=== PATIENT | male | born 1970 | race American Indian/Alaskan Native ===

== ENCOUNTER 2018-11-21 08:12 | Inpatient (IN) | payer OTHER ==
[2018-11-21] MEDS ORDERED: NORMODYNE IV ONE ×4 (09:20→12:56)
--- NOTE | 2018-11-21 09:27 | Emergency Department Report ---
ED General Adult HPI - General Chief complaint: Wound/Laceration Stated complaint: HBP/DIABETIC/LEG INJURY Time Seen by Provider: 11/21/18 09:11 Source: patient Mode of arrival: Ambulatory Limitations: No Limitations - History of Present Illness Initial comments: This is a 47-year-old man who is a very poor historian. He states that he injuried his leg about 3 days ago. He does admit that he has had increasing redness. He denies fever or chills. As far as any other symptoms he is not responding to the positive on review of systems at all. Apparently he's been out of his insulin/diabetes medicine as well as antihypertensive medicines since his he states dropped him from his insurance. He states that he has a divorce in progress. He is not expressing any depression or SI/HI. He is very vague as to the reason for his presentation today. I believe this to be likely the wound on his leg which has become more red. He was noted to be tachycardic and triage with uncontrolled hypertension. -: Gradual Location: left (pretibial area) Radiation: non-radiation Quality: aching Consistency: intermittent Improves with: none Worsens with: none Associated Symptoms: denies other symptoms Treatments Prior to Arrival: none - Related Data Allergies Allergy/AdvReac Type Severity Reaction Status Date / Time No Known Allergies Allergy Unverified 11/21/18 08:21 ED Review of Systems ROS: Stated complaint: HBP/DIABETIC/LEG INJURY Other details as noted in HPI Constitutional: denies: chills, fever Eyes: denies: eye pain, eye discharge, vision change ENT: denies: ear pain, throat pain Respiratory: denies: cough, shortness of breath, wheezing Cardiovascular: denies: chest pain, palpitations Endocrine: no symptoms reported Gastrointestinal: denies: abdominal pain, nausea, diarrhea Genitourinary: denies: urgency, dysuria Musculoskeletal: as per HPI. denies: back pain, joint swelling, arthralgia Skin: as per HPI. denies: rash, lesions Neurological: denies: headache, weakness, paresthesias Psychiatric: denies: anxiety, depression Hematological/Lymphatic: denies: easy bleeding, easy bruising ED Past Medical Hx - Past Medical History Hx Hypertension: Yes Hx CVA: Yes Hx Diabetes: Yes - Surgical History Past Surgical History?: No - Social History Smoking Status: Never Smoker Substance Use Type: None ED Physical Exam - General Limitations: No Limitations General appearance: alert, in no apparent distress - Head Head exam: Present: atraumatic, normocephalic - Eye Eye exam: Present: normal appearance. Absent: scleral icterus - ENT ENT exam: Present: mucous membranes moist - Neck Neck exam: Present: normal inspection. Absent: tenderness, meningismus - Respiratory Respiratory exam: Present: normal lung sounds bilaterally. Absent: respiratory distress - Cardiovascular Cardiovascular Exam: Present: regular rate, normal rhythm. Absent: systolic murmur, diastolic murmur, rubs, gallop - GI/Abdominal GI/Abdominal exam: Present: soft, normal bowel sounds. Absent: distended, tenderness, guarding, rebound, rigid - Rectal Rectal exam: Present: deferred - Extremities Exam Extremities exam: Present: normal capillary refill, other (there is a pretibial superficial wound/ulcer surrounded by erythema without signs of ascending lymp hangitis. There is no gross adenopathy. There is soft tissue swelling of the calf.). Absent: calf tenderness - Back Exam Back exam: Present: normal inspection - Neurological Exam Neurological exam: Present: alert, oriented X3, CN II-XII intact. Absent: motor sensory deficit - Psychiatric Psychiatric exam: Present: normal affect, normal mood - Skin Skin exam: Present: warm, dry, intact, normal color. Absent: rash ED Course Vital Signs 11/21/18 11/21/18 11/21/18 08:21 09:52 10:00 Temperature 98.4 F Pulse Rate 130 H 111 H Respiratory 18 19 26 H Rate Blood Pressure 206/118 177/104 O2 Sat by Pulse 97 96 Oximetry 11/21/18 11/21/18 10:59 11:00 Temperature Pulse Rate 113 H Respiratory 21 Rate Blood Pressure 185/112 185/112 O2 Sat by Pulse 94 93 Oximetry - Reevaluation(s) Reevaluation #1: Patient's blood pressure is improving. He will not be given bolus IV fluids because he apparently has a cardiomyopathy and substantial uncontrolled hypertension 11/21/18 11:35 ED Medical Decision Making - Lab Data Result diagrams: 11/21/18 09:16 11/21/18 09:16 Laboratory Results - last 24 hr 11/21/18 11/21/18 11/21/18 08:23 09:16 09:16 WBC 16.7 H RBC 4.33 Hgb 13.5 Hct 39.4 MCV 91 MCH 31 MCHC 34 RDW 12.7 L Plt Count 242 Lymph % (Auto) 7.1 L [place] % (Auto) 10.9 H Eos % (Auto) 0.0 Baso % (Auto) 0.5 Lymph # 1.2 [place] # 1.8 H Eos # 0.0 Baso # 0.1 Seg Neutrophils % 81.5 H Seg Neutrophils # 13.6 H PT INR APTT Sodium 135 L Potassium 3.2 L Chloride 94.0 L Carbon Dioxide 26 Anion Gap 18 BUN 8 L Creatinine 0.8 Estimated GFR > 60 BUN/Creatinine Ratio 10 Glucose 352 H POC Glucose 282 H Lactic Acid Calcium 8.8 Total Bilirubin 0.50 Direct Bilirubin < 0.2 AST 14 ALT 11 Alkaline Phosphatase 119 Total Creatine Kinase 214 H CK-MB (CK-2) 3.5 CK-MB (CK-2) Rel Index 1.6 Troponin T < 0.010 NT-Pro-B Natriuret Pep 891.2 H Total Protein 7.3 Albumin 3.3 L Albumin/Globulin Ratio 0.8 TSH Urine Color Urine Turbidity Urine pH Ur Specific [place] Urine Protein Urine Glucose (UA) Urine Ketones Urine Blood Urine Nitrite Urine Bilirubin Urine Urobilinogen Ur Leukocyte Esterase Urine WBC (Auto) Urine RBC (Auto) Urine Mucus Urine Opiates Screen Urine Methadone Screen Ur Barbiturates Screen Ur Phencyclidine Scrn Ur Amphetamines Screen U Benzodiazepines Scrn Urine Cocaine Screen 11/21/18 11/21/18 11/21/18 09:23 09:23 09:23 WBC RBC Hgb Hct MCV MCH MCHC RDW Plt Count Lymph % (Auto) [place] % (Auto) Eos % (Auto) Baso % (Auto) Lymph # [place] # Eos # Baso # Seg Neutrophils % Seg Neutrophils # PT 13.0 INR 0.94 APTT 25.8 Sodium Potassium Chloride Carbon Dioxide Anion Gap BUN Creatinine Estimated GFR BUN/Creatinine Ratio Glucose POC Glucose Lactic Acid 1.20 Calcium Total Bilirubin Direct Bilirubin AST ALT Alkaline Phosphatase Total Creatine Kinase CK-MB (CK-2) CK-MB (CK-2) Rel Index Troponin T NT-Pro-B Natriuret Pep Total Protein Albumin Albumin/Globulin Ratio TSH 0.799 Urine Color Urine Turbidity Urine pH Ur Specific [place] Urine Protein Urine Glucose (UA) Urine Ketones Urine Blood Urine Nitrite Urine Bilirubin Urine Urobilinogen Ur Leukocyte Esterase Urine WBC (Auto) Urine RBC (Auto) Urine Mucus Urine Opiates Screen Urine Methadone Screen Ur Barbiturates Screen Ur Phencyclidine Scrn Ur Amphetamines Screen U Benzodiazepines Scrn Urine Cocaine Screen 11/21/18 11/21/18 11:07 11:07 WBC RBC Hgb Hct MCV MCH MCHC RDW Plt Count Lymph % (Auto) [place] % (Auto) Eos % (Auto) Baso % (Auto) Lymph # [place] # Eos # Baso # Seg Neutrophils % Seg Neutrophils # PT INR APTT Sodium Potassium Chloride Carbon Dioxide Anion Gap BUN Creatinine Estimated GFR BUN/Creatinine Ratio Glucose POC Glucose Lactic Acid Calcium Total Bilirubin Direct Bilirubin AST ALT Alkaline Phosphatase Total Creatine Kinase CK-MB (CK-2) CK-MB (CK-2) Rel Index Troponin T NT-Pro-B Natriuret Pep Total Protein Albumin Albumin/Globulin Ratio TSH Urine Color Yellow Urine Turbidity Clear Urine pH 6.0 Ur Specific [place] 1.030 Urine Protein 100 mg/dl Urine Glucose (UA) >=500 Urine Ketones 80 Urine Blood Sm Urine Nitrite Neg Urine Bilirubin Neg Urine Urobilinogen < 2.0 Ur Leukocyte Esterase Neg Urine WBC (Auto) 1.0 Urine RBC (Auto) 1.0 Urine Mucus Few Urine Opiates Screen Presumptive negative Urine Methadone Screen Presumptive negative Ur Barbiturates Screen Presumptive negative Ur Phencyclidine Scrn Presumptive negative Ur Amphetamines Screen Presumptive negative U Benzodiazepines Scrn Presumptive negative Urine Cocaine Screen Presumptive negative - EKG Data -: EKG Interpreted by Me EKG shows normal: sinus rhythm Rate: tachycardia - EKG Data Interpretation: nonspecific ST-T wave kalina - Radiology Data Radiology results: report reviewed Critical care attestation.: If time is entered above; I have spent that time in minutes in the direct care of this critically ill patient, excluding procedure time. ED Disposition Clinical Impression: Malignant hypertension, Hypokalemia Sepsis Qualifiers: Sepsis type: sepsis due to unspecified organism Qualified Code(s): A41.9 - Sepsis, unspecified organism Type 2 diabetes mellitus with hyperglycemia Qualifiers: Diabetes mellitus termination clerk insulin use: unspecified termination clerk insulin use status Qualified Code(s): E11.65 - Type 2 diabetes mellitus with hyperglycemia Disposition: OP ADMIT IP TO THIS HOSP Is pt being admited?: Yes Does the pt Need Aspirin: Yes Condition: Stable Instructions: Hypertension (ED), Diabetes Mellitus Type 2 in Adults (ED) Time of Disposition: 11:56
[2018-11-21] MEDS ORDERED: BOOSTRIX IM ONE (09:30)
[2018-11-21 09:34] LABS: Basophils # (Auto) 0.1 K/mm3 (0.0-0.1); Basophils % (Auto) 0.5 % (0.0-1.8); Hematocrit 39.4 % (35.5-45.6); Hemoglobin 13.5 gm/dl (11.8-15.2); Lymphocytes # (Auto) 1.2 K/mm3 (1.2-5.4); Lymphocytes % (Auto) 7.1 % (13.4-35.0); Mean Corpuscular HGB Conc 34 % (32-34); Mean Corpuscular Volume 91 fl (84-94); Monocytes # (Auto) 1.8 K/mm3 (0.0-0.8); Monocytes % (Auto) 10.9 % (0.0-7.3); Platelet Count 242 K/mm3 (140-440); Red Blood Count 4.33 M/mm3 (3.65-5.03); Red Cell Distribution Width 12.7 % (13.2-15.2)
--- NOTE | 2018-11-21 09:40 | XRay Report ---
AP CHEST: HISTORY: Hypertension AP view of the chest demonstrates a normal mediastinal and cardiac contour with clear lungs and normal bony and soft tissue structures. IMPRESSION: Unremarkable AP chest.
[2018-11-21 09:46] LABS: INR 0.94 (0.87-1.13)
[2018-11-21 09:49] LABS: Partial Thromboplastin Time 25.8 Sec. (24.2-36.6)
[2018-11-21 09:54] LABS: Creatine Kinase MB 3.5 ng/mL (0.0-4.0)
[2018-11-21 09:55] LABS: Alanine Aminotransferase 11 units/L (7-56); Albumin 3.3 g/dL (3.9-5); BUN/Creatinine Ratio 10; Blood Urea Nitrogen 8 mg/dL (9-20); Calcium 8.8 mg/dL (8.4-10.2); Hemolysis Index 3
[2018-11-21 09:58] LABS: Bilirubin,Direct < 0.2 mg/dL (0-0.2)
[2018-11-21] MEDS ORDERED: VANCOMYCIN PHARMACY TO DOSE IV SCH ×2 (10:00→18:00)
[2018-11-21] MEDS: VANCOMYCIN 2,000 MG in NACL 0.9% 500 ML 500 ML IV SCH ×2 (11:16→22:27)
[2018-11-21] MEDS ORDERED: HumuLIN R IV ONE (11:28)
[2018-11-21] MEDS ORDERED: MERREM 1,000 MG in NACL 0.9% 100 ML IV ONE (11:33)
[2018-11-21] MEDS ORDERED: NACL 0.9% 1000 ML 1,000 ML IV ONE (11:34)
[2018-11-21 11:37] LABS: Bilirubin,Urine NEG (Negative); Blood,Urine SM (Negative); Color,Urine Yellow (Yellow); Mucus,Urine FEW /HPF; Urobilinogen,Urine < 2.0 mg/dL (<2.0)
[2018-11-21] MEDS ORDERED: K-DUR PO ONE (11:37)
[2018-11-21 11:44] LABS: Amphetamine Screen,Urine PRESUMPTIVE NEGATIVE; Benzodiazepines Screen,Urine PRESUMPTIVE NEGATIVE; Cocaine Screen,Urine PRESUMPTIVE NEGATIVE; Methadone Screen,Urine PRESUMPTIVE NEGATIVE; Opiate Screen,Urine PRESUMPTIVE NEGATIVE
[2018-11-21 11:57] LABS: Cannabinoid Screen,Urine PRESUMPTIVE POSITIVE
[2018-11-21] MEDS ORDERED: BABY ASPIRIN PO ONE (11:57)
[2018-11-21] MEDS ORDERED: HumuLIN R ONE (12:35)
--- NOTE | 2018-11-21 13:47 | Vascular Lab Report ---
FINAL REPORT EXAM: VL VENOUS DUPLEX LE LT HISTORY: swelling and pain in the leg cellulitis with wound TECHNIQUE: Galvan scale, color and pulsed Doppler ultrasound with color flow and spectral analysis aniceto luation of the left lower extremity was performed to assess for deep vein thrombosis. PRIORS: None currently available. FINDINGS: Left Extremity: There is normal grayscale appearance and compressibility. Normal phasic pulsed Doppler and normal color Doppler flow are visualized. The interrogated vessels s how normal augmentation. IMPRESSION: No evidence for DVT.
--- NOTE | 2018-11-21 16:49 | History and Physical Report ---
History of Present Illness Date of examination: 11/21/18 Date of admission: 11/21/18 11:57 Chief complaint: Left lower extremity redness and swelling for 24 hours. History of present illness: 47-year-old male with history of diabetes, hypertension and cerebrovascular accident comes in for redness pain and swelling of the left lower extremity from mid tibial region to the ankle. Patient sustained an open wound 3 days ago by hitting a metal bed post. Became red and swollen and painful over the last 24 hours. No fever. Pain is about 7 on a scale of 1-10. Patient is undergoing divorce from his and was dropped from the insurance. Not taking his medications regularly including his hypoglycemics and antihypertensives. Patient blood pressure was high in the emergency room. No exacerbating or relieving factor. Past Medical History Hypertension: Yes CVA: Yes with no residual weakness, had some right-sided weakness in the past from which she has recovered completely Diabetes: Yes Surgical History Past Surgical History?: No Social History Smoking Status: Never Smoker Substance Use Type: None Family history Htn Review of Systems ROS: Stated complaint: HBP/DIABETIC/LEG INJURY Other details as noted in HPI Constitutional: denies: chills, fever Eyes: denies: eye pain, eye discharge, vision change ENT: denies: ear pain, throat pain Respiratory: denies: cough, shortness of breath, wheezing Cardiovascular: denies: chest pain, palpitations Endocrine: no symptoms reported Gastrointestinal: denies: abdominal pain, nausea, diarrhea Genitourinary: denies: urgency, dysuria Musculoskeletal: as per HPI. denies: back pain, joint swelling, arthralgia Skin: as per HPI. denies: rash, lesions Neurological: denies: headache, weakness, paresthesias Psychiatric: denies: anxiety, depression Hematological/Lymphatic: denies: easy bleeding, easy bruising Medications and Allergies Allergies Allergy/AdvReac Type Severity Reaction Status Date / Time No Known Allergies Allergy Unverified 11/21/18 08:21 Home Medications Medication Instructions Recorded Confirmed Last Taken Type No Known Home Medications [No 11/21/18 11/21/18 Unknown History Reported Home Medications] Active Meds: Active Medications Vancomycin HCl 2,000 mg/ (Sodium Chloride) 540 mls @ 250 mls/hr IV Q12HR ERIN Last Admin: 11/21/18 11:16 Dose: 250 mls/hr Documented by: Sodium Chloride (Nacl 0.9% 1000 Ml) 1,000 mls @ 125 mls/hr IV ONCE ONE Stop: 11/21/18 19:33 Last Admin: 11/21/18 12:30 Dose: 125 mls/hr Documented by: Exam - Constitutional Vitals: Temp Pulse Resp BP Pulse Ox 98.4 F 104 H 29 H 190/96 95 11/21/18 08:21 11/21/18 12:30 11/21/18 12:30 11/21/18 12:30 11/21/18 12:30 General appearance: Present: no acute distress, well-nourished - EENT Eyes: Present: PERRL ENT: hearing intact, clear oral mucosa - Neck Neck: Present: supple, normal ROM - Respiratory Respiratory effort: normal Respiratory: bilateral: CTA - Cardiovascular Heart rate: 122 Rhythm: regular Heart Sounds: Present: S1 & S2. Absent: rub, click - Extremities Extremities: no ischemia, pulses intact, pulses symmetrical, No edema, abnormal Extremity abnormal: ulceration, erythema (swelling of the left lower extremity from the mid tibial region anteriorly to left ankle. Redness extends up to 15 cm 10 cm anteriorly with a 2 cm x 2 cm open wound. No drainage of pus.) Peripheral Pulses: within normal limits - Abdominal General gastrointestinal: Present: soft, non-tender, non-distended, normal bowel sounds Male genitourinary: Present: normal - Integumentary Integumentary: Present: clear, warm, dry - Musculoskeletal Musculoskeletal: gait normal, strength equal bilaterally - Psychiatric Psychiatric: appropriate mood/affect, intact judgment & insight - Neurologic Neurologic: CNII-XII intact, moves all extremities (power is 5 over 5 in all 4 extremities), gait normal - Allied Health Allied health notes reviewed: nursing, case management Results - Labs CBC & Chem 7: 11/21/18 09:16 11/21/18 09:16 Labs: Laboratory Last Values WBC 16.7 K/mm3 (4.5-11.0) H 11/21/18 09:16 RBC 4.33 M/mm3 (3.65-5.03) 11/21/18 09:16 Hgb 13.5 gm/dl (11.8-15.2) 11/21/18 09:16 Hct 39.4 % (35.5-45.6) 11/21/18 09:16 MCV 91 fl (84-94) 11/21/18 09:16 MCH 31 pg (28-32) 11/21/18 09:16 MCHC 34 % (32-34) 11/21/18 09:16 RDW 12.7 % (13.2-15.2) L 11/21/18 09:16 Plt Count 242 K/mm3 (140-440) 11/21/18 09:16 Lymph % (Auto) 7.1 % (13.4-35.0) L 11/21/18 09:16 [place] % (Auto) 10.9 % (0.0-7.3) H 11/21/18 09:16 Eos % (Auto) 0.0 % (0.0-4.3) 11/21/18 09:16 Baso % (Auto) 0.5 % (0.0-1.8) 11/21/18 09:16 Lymph # 1.2 K/mm3 (1.2-5.4) 11/21/18 09:16 [place] # 1.8 K/mm3 (0.0-0.8) H 11/21/18 09:16 Eos # 0.0 K/mm3 (0.0-0.4) 11/21/18 09:16 Baso # 0.1 K/mm3 (0.0-0.1) 11/21/18 09:16 Seg Neutrophils % 81.5 % (40.0-70.0) H 11/21/18 09:16 Seg Neutrophils # 13.6 K/mm3 (1.8-7.7) H 11/21/18 09:16 PT 13.0 Sec. (12.2-14.9) 11/21/18 09:23 INR 0.94 (0.87-1.13) 11/21/18 09:23 APTT 25.8 Sec. (24.2-36.6) 11/21/18 09:23 Sodium 135 mmol/L (137-145) L 11/21/18 09:16 Potassium 3.2 mmol/L (3.6-5.0) L 11/21/18 09:16 Chloride 94.0 mmol/L (98-107) L 11/21/18 09:16 Carbon Dioxide 26 mmol/L (22-30) 11/21/18 09:16 Anion Gap 18 mmol/L 11/21/18 09:16 BUN 8 mg/dL (9-20) L 11/21/18 09:16 Creatinine 0.8 mg/dL (0.8-1.5) 11/21/18 09:16 Estimated GFR > 60 ml/min 11/21/18 09:16 BUN/Creatinine Ratio 10 % 11/21/18 09:16 Glucose 352 mg/dL (75-100) H 11/21/18 09:16 POC Glucose 284 (70-105) H 11/21/18 12:28 Lactic Acid 1.20 mmol/L (0.7-2.0) 11/21/18 09:23 Calcium 8.8 mg/dL (8.4-10.2) 11/21/18 09:16 Total Bilirubin 0.50 mg/dL (0.1-1.2) 11/21/18 09:16 Direct Bilirubin < 0.2 mg/dL (0-0.2) 11/21/18 09:16 AST 14 units/L (5-40) 11/21/18 09:16 ALT 11 units/L (7-56) 11/21/18 09:16 Alkaline Phosphatase 119 units/L (35-129) 11/21/18 09:16 Total Creatine Kinase 214 units/L (55-170) H 11/21/18 09:16 CK-MB (CK-2) 3.5 ng/mL (0.0-4.0) 11/21/18 09:16 CK-MB (CK-2) Rel Index 1.6 (0-4) 11/21/18 09:16 Troponin T < 0.010 ng/mL (0.00-0.029) 11/21/18 09:16 NT-Pro-B Natriuret Pep 891.2 pg/mL (0-450) H 11/21/18 09:16 Total Protein 7.3 g/dL (6.3-8.2) 11/21/18 09:16 Albumin 3.3 g/dL (3.9-5) L 11/21/18 09:16 Albumin/Globulin Ratio 0.8 % 11/21/18 09:16 TSH 0.799 mlU/mL (0.270-4.200) 11/21/18 09:23 Urine Color Yellow (Yellow) 11/21/18 11:07 Urine Turbidity Clear (Clear) 11/21/18 11:07 Urine pH 6.0 (5.0-7.0) 11/21/18 11:07 Ur Specific [place] 1.030 (1.003-1.030) 11/21/18 11:07 Urine Protein 100 mg/dl mg/dL (Negative) 11/21/18 11:07 Urine Glucose (UA) >=500 mg/dL (Negative) 11/21/18 11:07 Urine Ketones 80 mg/dL (Negative) 11/21/18 11:07 Urine Blood Sm (Negative) 11/21/18 11:07 Urine Nitrite Neg (Negative) 11/21/18 11:07 Urine Bilirubin Neg (Negative) 11/21/18 11:07 Urine Urobilinogen < 2.0 mg/dL (<2.0) 11/21/18 11:07 Ur Leukocyte Esterase Neg (Negative) 11/21/18 11:07 Urine WBC (Auto) 1.0 /HPF (0.0-6.0) 11/21/18 11:07 Urine RBC (Auto) 1.0 /HPF (0.0-6.0) 11/21/18 11:07 Urine Mucus Few /HPF 11/21/18 11:07 Urine Opiates Screen Presumptive negative 11/21/18 11:07 Urine Methadone Screen Presumptive negative 11/21/18 11:07 Ur Barbiturates Screen Presumptive negative 11/21/18 11:07 Ur Phencyclidine Scrn Presumptive negative 11/21/18 11:07 Ur Amphetamines Screen Presumptive negative 11/21/18 11:07 U Benzodiazepines Scrn Presumptive negative 11/21/18 11:07 Urine Cocaine Screen Presumptive negative 11/21/18 11:07 U Marijuana (THC) Screen Presumptive positive 11/21/18 11:07 Drugs of Abuse Note Disclamer 11/21/18 11:07 Short CBC 11/21/18 Range/Units 09:16 WBC 16.7 H (4.5-11.0) K/mm3 Hgb 13.5 (11.8-15.2) gm/dl Hct 39.4 (35.5-45.6) % Plt Count 242 (140-440) K/mm3 BMP 11/21/18 09:16 Sodium 135 L Potassium 3.2 L Chloride 94.0 L Carbon Dioxide 26 BUN 8 L Creatinine 0.8 Glucose 352 H Calcium 8.8 Cardiac Enzymes 11/21/18 Range/Units 09:16 Total Creatine Kinase 214 H (55-170) units/L CK-MB (CK-2) 3.5 (0.0-4.0) ng/mL Troponin T < 0.010 (0.00-0.029) ng/mL Liver Function 11/21/18 Range/Units 09:16 Total Bilirubin 0.50 (0.1-1.2) mg/dL Direct Bilirubin < 0.2 (0-0.2) mg/dL AST 14 (5-40) units/L ALT 11 (7-56) units/L Alkaline Phosphatase 119 (35-129) units/L Albumin 3.3 L (3.9-5) g/dL Urine 11/21/18 Range/Units 11:07 Urine Color Yellow (Yellow) Urine pH 6.0 (5.0-7.0) Ur Specific [place] 1.030 (1.003-1.030) Urine Protein 100 mg/dl (Negative) mg/dL Urine Glucose (UA) >=500 (Negative) mg/dL - Imaging and Cardiology EKG: report reviewed (normal sinus rhythm sinus tachycardia heart rate of 122/m) Imaging and Cardiology: Chest x-ray No acute findings Venous duplex scan No acute DVT Assessment and Plan Advance Directives: Yes (full code) VTE prophylaxis?: Chemical Plan of care discussed with patient/family: Yes - Patient Problems (1) SIRS (systemic inflammatory response syndrome) Current Visit: Yes Status: Acute Plan to address problem: Clinical picture consistent with systemic inflammatory response syndrome. Patient has a high white count and left leg cellulitis (2) Left leg cellulitis Current Visit: Yes Status: Acute Plan to address problem: IV Unasyn and IV vancomycin initiated Patient may not need debridement Surgery consult requested (3) Hypertensive emergency Current Visit: Yes Status: Acute Plan to address problem: Patient started on blood pressure medications Patient is not taking any blood pressure medications for some time Will add losartan 100 mg once a day and Coreg 12.5 every 12 hours Hydralazine 10 mg IV every 3 hours when necessary (4) Hypokalemia Current Visit: Yes Status: Acute Plan to address problem: Supplemented (5) Type 2 diabetes mellitus Current Visit: Yes Status: Chronic Qualifiers: Diabetes mellitus penitentiary insulin use: without gear tester use Plan to address problem: Accu-Cheks before meals and at bedtime Check hemoglobin A1c Patient started on glimepiride (6) Cannabis dependence Current Visit: Yes Status: Chronic Plan to address problem: Patient counseled (7) DVT prophylaxis Current Visit: Yes Status: Acute Plan to address problem: Lovenox 40 mg subcutaneous daily and GI prophylaxis
[2018-11-21] MEDS ORDERED: TYLENOL PO PRN (17:39)
[2018-11-21] MEDS ORDERED: PERCOCET 5/325 PO PRN (17:39)
[2018-11-21] MEDS ORDERED: SODIUM CHLORIDE FLUSH SYRINGE 10 ML IV PRN (17:39)
[2018-11-21] MEDS ORDERED: ZOFRAN IV PRN (17:39)
[2018-11-21] MEDS ORDERED: DILAUDID IV PRN (17:39)
[2018-11-21] MEDS: COZAAR PO SCH (18:51)
[2018-11-21] MEDS: COREG PO SCH (22:03)
[2018-11-21] MEDS: PEPCID IV SCH (22:04)
[2018-11-21] MEDS: LOVENOX SUB-Q SCH (22:04)
[2018-11-21] MEDS: SODIUM CHLORIDE FLUSH SYRINGE 10 ML IV SCH (22:28)
[2018-11-21] MEDS: HumaLOG SUB-Q SCH (22:49)
[2018-11-21] MEDS: APRESOLINE IV PRN (23:56)
[2018-11-22] MEDS: UNASYN/NS 3 GM/100 ML 3 GM/100 ML BAG IV SCH ×6 (00:31→23:35)
[2018-11-22 06:21] LABS: Basophils % (Auto) 0.1 % (0.0-1.8); Eosinophils % (Auto) 0.3 % (0.0-4.3); Hematocrit 39.8 % (35.5-45.6); Hemoglobin 13.3 gm/dl (11.8-15.2); Lymphocytes # (Auto) 1.3 K/mm3 (1.2-5.4); Lymphocytes % (Auto) 9.5 % (13.4-35.0); Mean Corpuscular HGB Conc 33 % (32-34); Mean Corpuscular Volume 92 fl (84-94); Monocytes # (Auto) 1.6 K/mm3 (0.0-0.8); Monocytes % (Auto) 11.5 % (0.0-7.3); Platelet Count 251 K/mm3 (140-440); Red Blood Count 4.35 M/mm3 (3.65-5.03); Red Cell Distribution Width 12.9 % (13.2-15.2)
[2018-11-22] MEDS: APRESOLINE IV PRN ×4 (06:24→21:37)
[2018-11-22 06:43] LABS: Alanine Aminotransferase 11 units/L (7-56); Albumin 2.8 g/dL (3.9-5); BUN/Creatinine Ratio 8; Blood Urea Nitrogen 5 mg/dL (9-20); Calcium 8.3 mg/dL (8.4-10.2); Hemolysis Index 2
--- NOTE | 2018-11-22 08:55 | Consultation ---
History of Present Illness Consult date: 11/22/18 Reason for consult: other (left leg infection) Requesting physician: DELVIN BELTRÁN Chief complaint: left leg infection - History of present illness History of present illness: 47yo M with poorly controlled diabetes presented emergency room yesterday with increased redness, swelling, drainage from the left leg. He reports a few days ago he hit the leg on a bedpost. Denies any fevers, chills, nausea, vomiting. He has normal sensation in the left leg. He has never had anything like this before. He has been able to walk on it. His leg is better today compared yesterday. The redness is less. He is able to now touch the sides and back of the leg without any discomfort. Past History Past Medical History: diabetes, hypertension, stroke Past Surgical History: No surgical history Social history: denies: smoking, alcohol abuse Family history: no significant family history Medications and Allergies Allergies Allergy/AdvReac Type Severity Reaction Status Date / Time No Known Allergies Allergy Unverified 11/21/18 08:21 Home Medications Medication Instructions Recorded Confirmed Last Taken Type No Known Home Medications [No 11/21/18 11/21/18 Unknown History Reported Home Medications] Active Meds: Active Medications Acetaminophen (Tylenol) 650 mg PO Q4H PRN PRN Reason: Pain MILD(1-3)/Fever >100.5/RODRIGUEZ Carvedilol (Coreg) 12.5 mg PO BID [facility] Last Admin: 11/21/18 22:03 Dose: 12.5 mg Documented by: Enoxaparin Sodium (Lovenox) 40 mg SUB-Q QDAY@2200 [facility] Last Admin: 11/21/18 22:04 Dose: 40 mg Documented by: Famotidine (Pepcid) 20 mg IV BID [facility] Last Admin: 11/21/18 22:04 Dose: 20 mg Documented by: Hydralazine HCl (Apresoline) 10 mg IV Q4H PRN PRN Reason: HTN 160/95 Last Admin: 11/22/18 06:24 Dose: 10 mg Documented by: Hydromorphone HCl (Dilaudid) 0.5 mg IV Q3H PRN PRN Reason: Pain , Severe (7-10) Vancomycin HCl 2,000 mg/ (Sodium Chloride) 540 mls @ 250 mls/hr IV Q12HR [facility] Last Admin: 11/21/18 22:27 Dose: 250 mls/hr Documented by: Ampicillin Sodium/Sulbactam Sodium (Unasyn/Ns 3 Gm/100 Ml) 3 gm in 100 mls @ 100 mls/hr IV Q6HR [facility]; Protocol Last Admin: 11/22/18 05:33 Dose: 100 mls/hr Documented by: Insulin Human Lispro (Humalog) 0 unit SUB-Q ACHS [facility]; Protocol Last Admin: 11/21/18 22:49 Dose: 6 unit Documented by: Losartan Potassium (Cozaar) 100 mg PO QDAY [facility] Last Admin: 11/21/18 18:51 Dose: 100 mg Documented by: Ondansetron HCl (Zofran) 4 mg IV Q3H PRN PRN Reason: Nausea And Vomiting Oxycodone/Acetaminophen (Percocet 5/325) 1 tab PO Q6H PRN PRN Reason: Pain, Moderate (4-6) Potassium Chloride (K-Dur) 40 meq PO Q6H [facility] Stop: 11/22/18 14:01 Sodium Chloride (Sodium Chloride Flush Syringe 10 Ml) 10 ml IV BID [facility] Last Admin: 11/21/18 22:28 Dose: 10 ml Documented by: Sodium Chloride (Sodium Chloride Flush Syringe 10 Ml) 10 ml IV PRN PRN PRN Reason: LINE FLUSH Review of Systems - Constitutional no fever, no chills, no chronic pain - Cardiovascular no chest pain, no lightheadedness, no shortness of breath - Respiratory no cough - Gastrointestinal no abdominal pain, no nausea, no vomiting - Genitourinary no dysuria - Muskuloskeletal no low back pain - Integumentary redness, wounds, color changes Exam Vital Signs Temp Pulse Resp BP Pulse Ox 98.4 F 130 H 18 206/118 97 11/21/18 08:21 11/21/18 08:21 11/21/18 08:21 11/21/18 08:21 11/21/18 08:21 - General physical appearance Positive: no distress, no pain, other (pleasant) - Eyes Positive: normal occular movement - Respiratory Positive: normal expansion, normal respiratory effort Peripheral Pulses: within normal limits - Integumentary other (large area of erythema (~15cm shiva) with multiple white papules and a central area that is necrotic. Small amount of purulent drainage from inferior aspect of wound. ) - Neurologic Neurologic: alert and oriented to time, place and person, motor strength and sensation are grossly intact - Psychiatric Psychiatric: appropriate mood/affect, intact judgment & insight, cooperative Results - Labs 11/22/18 05:51 11/22/18 05:51 Abnormal lab results 11/21/18 11/21/18 11/21/18 Range/Units 08:23 09:16 09:16 WBC 16.7 H (4.5-11.0) K/mm3 RDW 12.7 L (13.2-15.2) % Lymph % (Auto) 7.1 L (13.4-35.0) % Sharp % (Auto) 10.9 H (0.0-7.3) % Sharp # 1.8 H (0.0-0.8) K/mm3 Seg Neutrophils % 81.5 H (40.0-70.0) % Seg Neutrophils # 13.6 H (1.8-7.7) K/mm3 Sodium 135 L (137-145) mmol/L Potassium 3.2 L (3.6-5.0) mmol/L Chloride 94.0 L (98-107) mmol/L BUN 8 L (9-20) mg/dL Creatinine (0.8-1.5) mg/dL Glucose 352 H (75-100) mg/dL POC Glucose 282 H (70-105) Hemoglobin A1c (4-6) % Calcium (8.4-10.2) mg/dL Total Creatine Kinase 214 H (55-170) units/L NT-Pro-B Natriuret Pep 891.2 H (0-450) pg/mL Albumin 3.3 L (3.9-5) g/dL 11/21/18 11/21/18 11/21/18 Range/Units 09:16 12:28 17:26 WBC (4.5-11.0) K/mm3 RDW (13.2-15.2) % Lymph % (Auto) (13.4-35.0) % [place] % (Auto) (0.0-7.3) % Sharp # (0.0-0.8) K/mm3 Seg Neutrophils % (40.0-70.0) % Seg Neutrophils # (1.8-7.7) K/mm3 Sodium (137-145) mmol/L Potassium (3.6-5.0) mmol/L Chloride (98-107) mmol/L BUN (9-20) mg/dL Creatinine (0.8-1.5) mg/dL Glucose (75-100) mg/dL POC Glucose 284 H 220 H (70-105) Hemoglobin A1c 14.4 H (4-6) % Calcium (8.4-10.2) mg/dL Total Creatine Kinase (55-170) units/L NT-Pro-B Natriuret Pep (0-450) pg/mL Albumin (3.9-5) g/dL 11/21/18 11/22/18 11/22/18 Range/Units 22:29 05:51 05:51 WBC 14.0 H (4.5-11.0) K/mm3 RDW 12.9 L (13.2-15.2) % Lymph % (Auto) 9.5 L (13.4-35.0) % [place] % (Auto) 11.5 H (0.0-7.3) % Sharp # 1.6 H (0.0-0.8) K/mm3 Seg Neutrophils % 78.6 H (40.0-70.0) % Seg Neutrophils # 11.0 H (1.8-7.7) K/mm3 Sodium (137-145) mmol/L Potassium 3.2 L (3.6-5.0) mmol/L Chloride (98-107) mmol/L BUN 5 L (9-20) mg/dL Creatinine 0.6 L (0.8-1.5) mg/dL Glucose 250 H (75-100) mg/dL POC Glucose 255 H (70-105) Hemoglobin A1c (4-6) % Calcium 8.3 L (8.4-10.2) mg/dL Total Creatine Kinase (55-170) units/L NT-Pro-B Natriuret Pep (0-450) pg/mL Albumin 2.8 L (3.9-5) g/dL Diabetes panel 11/21/18 11/21/18 11/22/18 Range/Units 09:16 09:16 05:51 Sodium 135 L 139 (137-145) mmol/L Potassium 3.2 L 3.2 L (3.6-5.0) mmol/L Chloride 94.0 L 99.3 (98-107) mmol/L Carbon Dioxide 26 23 (22-30) mmol/L BUN 8 L 5 L (9-20) mg/dL Creatinine 0.8 0.6 L (0.8-1.5) mg/dL Glucose 352 H 250 H (75-100) mg/dL Hemoglobin A1c 14.4 H (4-6) % Calcium 8.8 8.3 L (8.4-10.2) mg/dL AST 14 12 (5-40) units/L ALT 11 11 (7-56) units/L Alkaline Phosphatase 119 102 (35-129) units/L Total Protein 7.3 6.4 (6.3-8.2) g/dL Albumin 3.3 L 2.8 L (3.9-5) g/dL Thyroid panel 11/21/18 Range/Units 09:23 TSH 0.799 (0.270-4.200) mlU/mL Calcium panel 11/21/18 11/22/18 Range/Units 09:16 05:51 Calcium 8.8 8.3 L (8.4-10.2) mg/dL Albumin 3.3 L 2.8 L (3.9-5) g/dL Pituitary panel 11/21/18 11/21/18 11/22/18 Range/Units 09:16 09:23 05:51 Sodium 135 L 139 (137-145) mmol/L Potassium 3.2 L 3.2 L (3.6-5.0) mmol/L Chloride 94.0 L 99.3 (98-107) mmol/L Carbon Dioxide 26 23 (22-30) mmol/L BUN 8 L 5 L (9-20) mg/dL Creatinine 0.8 0.6 L (0.8-1.5) mg/dL Glucose 352 H 250 H (75-100) mg/dL Calcium 8.8 8.3 L (8.4-10.2) mg/dL TSH 0.799 (0.270-4.200) mlU/mL Adrenal panel 11/21/18 11/22/18 Range/Units 09:16 05:51 Sodium 135 L 139 (137-145) mmol/L Potassium 3.2 L 3.2 L (3.6-5.0) mmol/L Chloride 94.0 L 99.3 (98-107) mmol/L Carbon Dioxide 26 23 (22-30) mmol/L BUN 8 L 5 L (9-20) mg/dL Creatinine 0.8 0.6 L (0.8-1.5) mg/dL Glucose 352 H 250 H (75-100) mg/dL Calcium 8.8 8.3 L (8.4-10.2) mg/dL Total Bilirubin 0.50 0.60 (0.1-1.2) mg/dL AST 14 12 (5-40) units/L ALT 11 11 (7-56) units/L Alkaline Phosphatase 119 102 (35-129) units/L Total Protein 7.3 6.4 (6.3-8.2) g/dL Albumin 3.3 L 2.8 L (3.9-5) g/dL - Imaging Additional studies: Lower extremity duplex report reviewed Assessment and Plan - Patient Problems (1) Left leg cellulitis Current Visit: Yes Status: Acute Plan to address problem: Patient stable. Based on his report, he is clinically improved compared yesterday. We should check to make sure there is no small pocket of fluid underneath the necrotic area where he suffered his trauma. He is in agreement to do a local world exploration. I will order the supplies to the bedside. time=30min
[2018-11-22] MEDS ORDERED: XYLOCAINE 1%/ EPI 1:100,000 INFILTRATI ONE (09:30)
[2018-11-22] MEDS: COZAAR PO SCH (09:52)
[2018-11-22] MEDS: HumaLOG SUB-Q SCH ×4 (09:52→23:55)
[2018-11-22] MEDS: PEPCID IV SCH ×2 (09:53→21:37)
[2018-11-22] MEDS: COREG PO SCH ×2 (09:53→21:38)
[2018-11-22] MEDS: K-DUR PO SCH ×2 (09:53→14:54)
[2018-11-22] MEDS: SODIUM CHLORIDE FLUSH SYRINGE 10 ML IV SCH ×2 (09:54→21:43)
--- NOTE | 2018-11-22 11:17 | Procedure Note ---
Date of procedure: 11/22/18 Pre-op diagnosis: LLE cellulitis Post-op diagnosis: other (LLE superficial abscess) Procedure: Abscess I&D - Procedure, risks, benefits were discussed. Questions were answered. Consent was obtained. Timeout was done Sterile prep. 1%lido with epi used for anesthestic. Abscess was incised with #11 blade. Abscess cavity was probed with CTA. Entire length of cavity was opened. Cavity was irrigated out and packed with iodoform. Cavity extended into the subc utaneous tissue level. No extension laterally or deep. Dressings were placed. Pt tolerated the procedure well. No complications. Findings: 2cm x 1cm abscess cavity involving the skin and subcutaneous tissue levels. Anesthesia: local Surgeon: JOSE CARLOS GUERRERO Estimated blood loss: minimal Pathology: list (culture swab) Specimen disposition: to lab Condition: stable Disposition: floor
[2018-11-22] MEDS: VANCOMYCIN 2,000 MG in NACL 0.9% 500 ML 500 ML IV SCH ×2 (11:41→21:37)
--- NOTE | 2018-11-22 15:11 | Progress Note ---
Assessment and Plan Assessment and plan: Left leg cellulitis, infected wound. Admitted surgeon consulted, following Diabetes mellitus type 2 Fingerstick qac and hs hypertensive urgency. Continue meds Full code status History Interval history: Wound, redness, swelling left leg after trauma Hospitalist Physical - Physical exam Narrative exam: GEN: Not in acute distress, lying in bed, morbidly obese HEENT: Normocephalic, atraumatic, Neck: supple, No JVD Lungs: Clear to auscultation bilaterally, no wheeze Heart:S1 and S2 regular, no murmurs, rubs or gallop, Abd:soft, non tender, non distended, normal bowel sounds Ext: Left leg ulcer, erythema,leg swollen, no cyanosis Neuro: Awake,alert, oriented x 3, No focal signs - Constitutional Vitals: Temp Pulse Resp BP Pulse Ox 98.6 F 110 H 24 169/103 95 11/22/18 12:10 11/22/18 13:22 11/22/18 12:10 11/22/18 13:22 11/22/18 12:10 General appearance: Present: no acute distress, obese Results - Labs CBC & Chem 7: 11/23/18 05:01 11/24/18 09:21 Labs: Laboratory Last Values WBC 14.0 K/mm3 (4.5-11.0) H 11/22/18 05:51 RBC 4.35 M/mm3 (3.65-5.03) 11/22/18 05:51 Hgb 13.3 gm/dl (11.8-15.2) 11/22/18 05:51 Hct 39.8 % (35.5-45.6) 11/22/18 05:51 MCV 92 fl (84-94) 11/22/18 05:51 MCH 31 pg (28-32) 11/22/18 05:51 MCHC 33 % (32-34) 11/22/18 05:51 RDW 12.9 % (13.2-15.2) L 11/22/18 05:51 Plt Count 251 K/mm3 (140-440) 11/22/18 05:51 Lymph % (Auto) 9.5 % (13.4-35.0) L 11/22/18 05:51 [place] % (Auto) 11.5 % (0.0-7.3) H 11/22/18 05:51 Eos % (Auto) 0.3 % (0.0-4.3) 11/22/18 05:51 Baso % (Auto) 0.1 % (0.0-1.8) 11/22/18 05:51 Lymph # 1.3 K/mm3 (1.2-5.4) 11/22/18 05:51 [place] # 1.6 K/mm3 (0.0-0.8) H 11/22/18 05:51 Eos # 0.0 K/mm3 (0.0-0.4) 11/22/18 05:51 Baso # 0.0 K/mm3 (0.0-0.1) 11/22/18 05:51 Seg Neutrophils % 78.6 % (40.0-70.0) H 11/22/18 05:51 Seg Neutrophils # 11.0 K/mm3 (1.8-7.7) H 11/22/18 05:51 PT 13.0 Sec. (12.2-14.9) 11/21/18 09:23 INR 0.94 (0.87-1.13) 11/21/18 09:23 APTT 25.8 Sec. (24.2-36.6) 11/21/18 09:23 Sodium 139 mmol/L (137-145) 11/22/18 05:51 Potassium 3.2 mmol/L (3.6-5.0) L 11/22/18 05:51 Chloride 99.3 mmol/L (98-107) 11/22/18 05:51 Carbon Dioxide 23 mmol/L (22-30) 11/22/18 05:51 Anion Gap 20 mmol/L 11/22/18 05:51 BUN 5 mg/dL (9-20) L 11/22/18 05:51 Creatinine 0.6 mg/dL (0.8-1.5) L 11/22/18 05:51 Estimated GFR > 60 ml/min 11/22/18 05:51 BUN/Creatinine Ratio 8 % 11/22/18 05:51 Glucose 250 mg/dL (75-100) H 11/22/18 05:51 POC Glucose 161 (70-105) H 11/22/18 12:51 Hemoglobin A1c 14.4 % (4-6) H 11/21/18 09:16 Lactic Acid 1.20 mmol/L (0.7-2.0) 11/21/18 09:23 Calcium 8.3 mg/dL (8.4-10.2) L 11/22/18 05:51 Total Bilirubin 0.60 mg/dL (0.1-1.2) 11/22/18 05:51 Direct Bilirubin < 0.2 mg/dL (0-0.2) 11/21/18 09:16 AST 12 units/L (5-40) 11/22/18 05:51 ALT 11 units/L (7-56) 11/22/18 05:51 Alkaline Phosphatase 102 units/L (35-129) 11/22/18 05:51 Total Creatine Kinase 214 units/L (55-170) H 11/21/18 09:16 CK-MB (CK-2) 3.5 ng/mL (0.0-4.0) 11/21/18 09:16 CK-MB (CK-2) Rel Index 1.6 (0-4) 11/21/18 09:16 Troponin T < 0.010 ng/mL (0.00-0.029) 11/21/18 09:16 NT-Pro-B Natriuret Pep 891.2 pg/mL (0-450) H 11/21/18 09:16 Total Protein 6.4 g/dL (6.3-8.2) 11/22/18 05:51 Albumin 2.8 g/dL (3.9-5) L 11/22/18 05:51 Albumin/Globulin Ratio 0.8 % 11/22/18 05:51 TSH 0.799 mlU/mL (0.270-4.200) 11/21/18 09:23 Urine Color Yellow (Yellow) 11/21/18 11:07 Urine Turbidity Clear (Clear) 11/21/18 11:07 Urine pH 6.0 (5.0-7.0) 11/21/18 11:07 Ur Specific [place] 1.030 (1.003-1.030) 11/21/18 11:07 Urine Protein 100 mg/dl mg/dL (Negative) 11/21/18 11:07 Urine Glucose (UA) >=500 mg/dL (Negative) 11/21/18 11:07 Urine Ketones 80 mg/dL (Negative) 11/21/18 11:07 Urine Blood Sm (Negative) 11/21/18 11:07 Urine Nitrite Neg (Negative) 11/21/18 11:07 Urine Bilirubin Neg (Negative) 11/21/18 11:07 Urine Urobilinogen < 2.0 mg/dL (<2.0) 11/21/18 11:07 Ur Leukocyte Esterase Neg (Negative) 11/21/18 11:07 Urine WBC (Auto) 1.0 /HPF (0.0-6.0) 11/21/18 11:07 Urine RBC (Auto) 1.0 /HPF (0.0-6.0) 11/21/18 11:07 Urine Mucus Few /HPF 11/21/18 11:07 Urine Opiates Screen Presumptive negative 11/21/18 11:07 Urine Methadone Screen Presumptive negative 11/21/18 11:07 Ur Barbiturates Screen Presumptive negative 11/21/18 11:07 Ur Phencyclidine Scrn Presumptive negative 11/21/18 11:07 Ur Amphetamines Screen Presumptive negative 11/21/18 11:07 U Benzodiazepines Scrn Presumptive negative 11/21/18 11:07 Urine Cocaine Screen Presumptive negative 11/21/18 11:07 U Marijuana (THC) Screen Presumptive positive 11/21/18 11:07 Drugs of Abuse Note Disclamer 11/21/18 11:07 Nutrition/Malnutrition Assess - Dietary Evaluation Nutrition/Malnutrition Findings: Nutrition Notes Start: 11/22/18 13:39 Freq: Status: Active Protocol: Document 11/22/18 13:40 (Rec: 11/22/18 13:41 [email or web address]) Nutrition Notes Need for Assessment generated from: parts analyst Initial or Follow up Brief Note Subjective/Other Information Pt screened for skin risk. Fox 20 points. Nutrition Intervention Revisit per MD consult or patient Sign Off request:
[2018-11-22] MEDS: LOVENOX SUB-Q SCH (21:37)
[2018-11-23 06:05] LABS: Hematocrit 41.1 % (35.5-45.6); Hemoglobin 14.1 gm/dl (11.8-15.2); Mean Corpuscular HGB Conc 34 % (32-34); Mean Corpuscular Volume 92 fl (84-94); Platelet Count 255 K/mm3 (140-440); Red Blood Count 4.47 M/mm3 (3.65-5.03)
[2018-11-23] MEDS: UNASYN/NS 3 GM/100 ML 3 GM/100 ML BAG IV SCH ×3 (06:07→18:56)
[2018-11-23 06:28] LABS: BUN/Creatinine Ratio 9; Blood Urea Nitrogen 6 mg/dL (9-20); Calcium 8.4 mg/dL (8.4-10.2); Hemolysis Index 7
[2018-11-23] MEDS: HumaLOG SUB-Q SCH ×4 (08:33→22:12)
[2018-11-23] MEDS: VANCOMYCIN 2,000 MG in NACL 0.9% 500 ML 500 ML IV SCH ×2 (10:50→22:31)
[2018-11-23] MEDS: COREG PO SCH ×2 (10:51→22:13)
[2018-11-23] MEDS: PEPCID IV SCH ×2 (10:51→22:13)
[2018-11-23] MEDS: COZAAR PO SCH (10:51)
[2018-11-23] MEDS: SODIUM CHLORIDE FLUSH SYRINGE 10 ML IV SCH ×2 (10:52→22:13)
[2018-11-23] MEDS: PROCARDIA XL PO SCH (11:10)
[2018-11-23] MEDS: K-DUR PO SCH ×3 (11:10→20:10)
[2018-11-23] MEDS ORDERED: APRESOLINE IV PRN (11:12)
--- NOTE | 2018-11-23 16:02 | Progress Note ---
Assessment and Plan - Patient Problems (1) Left leg cellulitis Current Visit: Yes Status: Acute Plan to address problem: Patient stable. s/p I&D of left leg abscess. - 11/22/18 - POD#1. Pt doing well. WBC normal. Begin packing with Silver Alginate QOD. Ok to d/c home from my standpoint. May shower. f/u in clinic in 1 week please call with questions. time=10min Subjective Date of service: 11/23/18 Patient Reports: Positive: no new complaints (has soreness now), tolerating a r egular diet, afebrile Objective Vital Signs - 12hr 11/23/18 11/23/18 11/23/18 10:00 10:51 11:34 Temperature 98.2 F Pulse Rate 102 H 105 H Pulse Rate [ 102 H Right Brachial] Respiratory 22 Rate Blood Pressure 180/101 183/104 O2 Sat by Pulse 96 Oximetry 11/23/18 13:46 Temperature Pulse Rate Pulse Rate [ Right Brachial] Respiratory Rate Blood Pressure 183/104 O2 Sat by Pulse Oximetry - General physical appearance no distress, no pain - Integumentary other (less intense erythema. packing in place. ) - Psychiatric oriented to time, oriented to person, oriented to place, speech is normal, memory intact - Labs 11/23/18 05:01 11/23/18 05:01 Diabetes panel 11/23/18 Range/Units 05:01 Sodium 138 (137-145) mmol/L Potassium 3.1 L (3.6-5.0) mmol/L Chloride 101.5 (98-107) mmol/L Carbon Dioxide 26 (22-30) mmol/L BUN 6 L (9-20) mg/dL Creatinine 0.7 L (0.8-1.5) mg/dL Glucose 233 H (75-100) mg/dL Calcium 8.4 (8.4-10.2) mg/dL Calcium panel 11/23/18 Range/Units 05:01 Calcium 8.4 (8.4-10.2) mg/dL Pituitary panel 11/23/18 Range/Units 05:01 Sodium 138 (137-145) mmol/L Potassium 3.1 L (3.6-5.0) mmol/L Chloride 101.5 (98-107) mmol/L Carbon Dioxide 26 (22-30) mmol/L BUN 6 L (9-20) mg/dL Creatinine 0.7 L (0.8-1.5) mg/dL Glucose 233 H (75-100) mg/dL Calcium 8.4 (8.4-10.2) mg/dL Adrenal panel 11/23/18 Range/Units 05:01 Sodium 138 (137-145) mmol/L Potassium 3.1 L (3.6-5.0) mmol/L Chloride 101.5 (98-107) mmol/L Carbon Dioxide 26 (22-30) mmol/L BUN 6 L (9-20) mg/dL Creatinine 0.7 L (0.8-1.5) mg/dL Glucose 233 H (75-100) mg/dL Calcium 8.4 (8.4-10.2) mg/dL
--- NOTE | 2018-11-23 20:44 | Consultation ---
History of Present Illness - Reason for Consult Consult date: 11/23/18 left leg cellulitis Requesting physician: MINH DWYER - History of Present Illness 47 y/o male with history of uncontrolled diabetes, hypertension and CVA; admitted on 11/21/2018 due to worsening left anterior calf redness, tenderness and swelling. Patient reports he sustained an injury to the area 4 days before admission with his bedpost. He believes he developed a bruise. Patient is undergoing divorce from his and was dropped from the insurance. Therefore, he stopped his diabetes meds and antihypertensives. Denies any previous Staph skin infections. Denies tob, etoh. Uses marihuana. In the ED, temp 98.4, HR 130, BP 200/118, O2 sat 97%. WBC 16. Hg 13.5. Plat 242. Lactate 1.2. Creat 0.8. A1C 14. BNP 891. CK 214. UA neg. UDS + marihuana. CXR neg. US leg no DVT. Blood culture 11/21/2018 no growth. Wound culture 11/21 Staph aureus. Review of Systems: General: no fevers,+chills and no night sweats no weight loss HEENT: no new visual disturbance Respiratory: no cough, no yellow sputum, no hemoptysis Cardiovascular: no Pleuritic chest pain , no syncope Gastrointestinal: No nausea, vomiting or diarrhea +sore throat Genitourinary: No dysuria or hematuria Musculoskeletal: no edema Neurologic: No headaches, seizures Hematologic: No easy bruising or bleeding Endocrine: no night sweats, no weight loss Skin: negative for rash, jaundice Psychiatric: No suicidal or homicidal ideation Past History Past Medical History: diabetes, hypertension, stroke Past Surgical History: No surgical history Social history: denies: smoking, alcohol abuse Family history: no significant family history Medications and Allergies Allergies Allergy/AdvReac Type Severity Reaction Status Date / Time No Known Allergies Allergy Unverified 11/21/18 08:21 Home Medications Medication Instructions Recorded Confirmed Last Taken Type Hydralazine HCl 50 mg PO TID 11/23/18 11/23/18 Unknown History Metoprolol Succinate 200 mg PO QDAY 11/23/18 11/23/18 Unknown History Norvasc 10 mg PO QAM 11/23/18 11/23/18 Unknown History Active Meds: Active Medications Acetaminophen (Tylenol) 650 mg PO Q4H PRN PRN Reason: Pain MILD(1-3)/Fever >100.5/RODRIGUEZ Carvedilol (Coreg) 12.5 mg PO BID [facility] Last Admin: 11/23/18 10:51 Dose: 12.5 mg Documented by: Enoxaparin Sodium (Lovenox) 40 mg SUB-Q QDAY@2200 [facility] Last Admin: 11/22/18 21:37 Dose: 40 mg Documented by: Famotidine (Pepcid) 20 mg IV BID [facility] Last Admin: 11/23/18 10:51 Dose: 20 mg Documented by: Hydralazine HCl (Apresoline) 20 mg IV Q4HR PRN PRN Reason: SBP>160 or DBP>110 Last Admin: 11/23/18 13:46 Dose: 20 mg Documented by: Hydromorphone HCl (Dilaudid) 0.5 mg IV Q3H PRN PRN Reason: Pain , Severe (7-10) Last Admin: 11/22/18 15:55 Dose: 0.5 mg Documented by: Vancomycin HCl 2,000 mg/ (Sodium Chloride) 540 mls @ 250 mls/hr IV Q12HR [facility] Last Admin: 11/23/18 10:50 Dose: 250 mls/hr Documented by: Ampicillin Sodium/Sulbactam Sodium (Unasyn/Ns 3 Gm/100 Ml) 3 gm in 100 mls @ 100 mls/hr IV Q6HR [facility]; Protocol Last Admin: 11/23/18 18:56 Dose: 100 mls/hr Documented by: Insulin Human Lispro (Humalog) 0 unit SUB-Q ACHS [facility]; Protocol Last Admin: 11/23/18 18:56 Dose: 6 unit Documented by: Losartan Potassium (Cozaar) 100 mg PO QDAY [facility] Last Admin: 11/23/18 10:51 Dose: 100 mg Documented by: Nifedipine (Procardia Xl) 60 mg PO QDAY [facility] Last Admin: 11/23/18 11:10 Dose: 60 mg Documented by: Ondansetron HCl (Zofran) 4 mg IV Q3H PRN PRN Reason: Nausea And Vomiting Oxycodone/Acetaminophen (Percocet 5/325) 1 tab PO Q6H PRN PRN Reason: Pain, Moderate (4-6) Potassium Chloride (K-Dur) 40 meq PO ONCE ONE Stop: 02/01/19 21:01 Last Admin: 11/23/18 20:10 Dose: 40 meq Documented by: Sodium Chloride (Sodium Chloride Flush Syringe 10 Ml) 10 ml IV BID [facility] Last Admin: 11/23/18 10:52 Dose: 10 ml Documented by: Sodium Chloride (Sodium Chloride Flush Syringe 10 Ml) 10 ml IV PRN PRN PRN Reason: LINE FLUSH Physical Examination - Physical Exam Narrative exam: Constitutional: Alert, cooperative. No acute distress Head, Ears, Nose: Normocephalic, atraumatic. External ears, nose normal Eyes: Conjunctivae/corneas clear. No icterus. No ptosis. Neck:no JVD, left anterior neck large hard nodule non tender Oral: clear OP Cardiovascular: tachycardic Respiratory: Good air entry, clear to auscultation bilaterally GI: Soft, non-tender; bowel sounds normal. No peritoneal signs Musculoskeletal: +left anterior calf edema, erythema and tenderness with open wound with purulence Skin: +left leg abscess Hem/Lymphatic: No palpable cervical or supraclavicular nodes. No lymphangitis Psych: Mood ok. Affect normal Neurological: Awake, alert, oriented. No gross abnormality. No weakness - Constitutional Vitals: Vital Signs Temp Pulse Resp BP Pulse Ox 99.0 F 118 H 24 150/88 95 11/23/18 17:50 11/23/18 17:50 11/23/18 17:50 11/23/18 17:50 11/23/18 17:50 Temperature -Last 24 Hours Temperature 99.0 F Temperature 98.2 F Temperature 98.8 F Temperature 98.8 F Results - Labs CBC & Chem 7: 11/23/18 05:01 11/23/18 05:01 Labs: Abnormal lab results 11/22/18 11/23/18 11/23/18 Range/Units 21:35 05:01 05:01 RDW 13.0 L (13.2-15.2) % Potassium 3.1 L (3.6-5.0) mmol/L BUN 6 L (9-20) mg/dL Creatinine 0.7 L (0.8-1.5) mg/dL Glucose 233 H (75-100) mg/dL POC Glucose 266 H (70-105) 11/23/18 11/23/18 11/23/18 Range/Units 08:22 11:41 16:14 RDW (13.2-15.2) % Potassium (3.6-5.0) mmol/L BUN (9-20) mg/dL Creatinine (0.8-1.5) mg/dL Glucose (75-100) mg/dL POC Glucose 233 H 266 H 289 H (70-105) Assessment and Plan Cultures: 11/18/2018 blood culture no growth 11/22/2018 wound culture Staph A/P: 47 y/o male with history of uncontrolled diabetes, hypertension and CVA; admitted on 11/21/2018 due to worsening left anterior calf redness, tenderness and swellin. Sepsis: present on admission with tachycardia, leukocytosis; eto. left leg cellulitis. Blood culture 11/21/2018 no growth. 2. Left leg necrotizing cellulitis and abscess: due to Staph aureus. US leg no DVT. Wound culture 11/21 Staph aureus. s/p I&D of left leg abscess on 11/22 3. DM: uncontrolled 4. HTN: uncontrolled Recs: stop unasyn start cefazolin continue vancomycin contact isolation f/u wound culture if MRSA will do doxycycline 100 mg PO BID for 7 days, if MSSA will do keflex 1 g PO TID for 7 days Will follow MD [facility] C: [phone] O: [phone] F: [phone]
[2018-11-23] MEDS ORDERED: K-DUR PO ONE (21:00)
[2018-11-23] MEDS: LOVENOX SUB-Q SCH (22:13)
[2018-11-23] MEDS: ceFAZolin 2 GM in NACL 0.9% 100 ML IV SCH (23:27)
[2018-11-24] MEDS: ceFAZolin 2 GM in NACL 0.9% 100 ML IV SCH ×2 (06:05→13:41)
[2018-11-24] MEDS: HumaLOG SUB-Q SCH ×2 (08:42→11:30)
[2018-11-24] MEDS: VANCOMYCIN 2,000 MG in NACL 0.9% 500 ML 500 ML IV SCH (09:14)
[2018-11-24] MEDS: SODIUM CHLORIDE FLUSH SYRINGE 10 ML IV SCH (09:14)
[2018-11-24] MEDS: COZAAR PO SCH (09:15)
[2018-11-24] MEDS: PROCARDIA XL PO SCH (09:15)
[2018-11-24] MEDS: PEPCID IV SCH (09:15)
[2018-11-24] MEDS: COREG PO SCH (09:15)
[2018-11-24] MEDS: APRESOLINE PO SCH ×2 (10:00→13:41)
[2018-11-24 10:36] LABS: BUN/Creatinine Ratio 4; Blood Urea Nitrogen 3 mg/dL (9-20); Calcium 8.5 mg/dL (8.4-10.2); Hemolysis Index 1
--- NOTE | 2018-11-24 12:18 | Progress Note ---
Assessment and Plan Assessment and plan: Left leg cellulitis, infected wound. surgeon consulted, following On Vancomycin Diabetes mellitus type 2 Fingerstick qac and hs hypertensive urgency. Continue meds Hydralazine, Coreg, Losartan Full code status History Interval history: Wound, redness, swelling left leg after trauma Hospitalist Physical - Physical exam Narrative exam: GEN: Not in acute distress, lying in bed, morbidly obese HEENT: Normocephalic, atraumatic, Neck: supple, No JVD Lungs: Clear to auscultation bilaterally, no wheeze Heart:S1 and S2 regular, no murmurs, rubs or gallop, Abd:soft, non tender, non distended, normal bowel sounds Ext: Left leg ulcer, erythema,leg swollen, no cyanosis Neuro: Awake,alert, oriented x 3, No focal signs - Constitutional Vitals: Temp Pulse Resp BP Pulse Ox 98.8 F 102 H 18 155/92 93 11/24/18 06:05 11/24/18 06:05 11/24/18 06:05 11/24/18 06:05 11/24/18 06:05 General appearance: Present: no acute distress, obese Results - Labs CBC & Chem 7: 11/23/18 05:01 11/24/18 09:21 Labs: Laboratory Last Values WBC 9.4 K/mm3 (4.5-11.0) 11/23/18 05:01 RBC 4.47 M/mm3 (3.65-5.03) 11/23/18 05:01 Hgb 14.1 gm/dl (11.8-15.2) 11/23/18 05:01 Hct 41.1 % (35.5-45.6) 11/23/18 05:01 MCV 92 fl (84-94) 11/23/18 05:01 MCH 32 pg (28-32) 11/23/18 05:01 MCHC 34 % (32-34) 11/23/18 05:01 RDW 13.0 % (13.2-15.2) L 11/23/18 05:01 Plt Count 255 K/mm3 (140-440) 11/23/18 05:01 Lymph % (Auto) 9.5 % (13.4-35.0) L 11/22/18 05:51 [place] % (Auto) 11.5 % (0.0-7.3) H 11/22/18 05:51 Eos % (Auto) 0.3 % (0.0-4.3) 11/22/18 05:51 Baso % (Auto) 0.1 % (0.0-1.8) 11/22/18 05:51 Lymph # 1.3 K/mm3 (1.2-5.4) 11/22/18 05:51 [place] # 1.6 K/mm3 (0.0-0.8) H 11/22/18 05:51 Eos # 0.0 K/mm3 (0.0-0.4) 11/22/18 05:51 Baso # 0.0 K/mm3 (0.0-0.1) 11/22/18 05:51 Seg Neutrophils % 78.6 % (40.0-70.0) H 11/22/18 05:51 Seg Neutrophils # 11.0 K/mm3 (1.8-7.7) H 11/22/18 05:51 PT 13.0 Sec. (12.2-14.9) 11/21/18 09:23 INR 0.94 (0.87-1.13) 11/21/18 09:23 APTT 25.8 Sec. (24.2-36.6) 11/21/18 09:23 Sodium 137 mmol/L (137-145) 11/24/18 09:21 Potassium 3.0 mmol/L (3.6-5.0) L 11/24/18 09:21 Chloride 97.1 mmol/L (98-107) L 11/24/18 09:21 Carbon Dioxide 26 mmol/L (22-30) 11/24/18 09:21 Anion Gap 17 mmol/L 11/24/18 09:21 BUN 3 mg/dL (9-20) L 11/24/18 09:21 Creatinine 0.7 mg/dL (0.8-1.5) L 11/24/18 09:21 Estimated GFR > 60 ml/min 11/24/18 09:21 BUN/Creatinine Ratio 4 % 11/24/18 09:21 Glucose 267 mg/dL (75-100) H 11/24/18 09:21 POC Glucose 199 (70-105) H 11/24/18 07:49 Hemoglobin A1c 14.4 % (4-6) H 11/21/18 09:16 Lactic Acid 1.20 mmol/L (0.7-2.0) 11/21/18 09:23 Calcium 8.5 mg/dL (8.4-10.2) 11/24/18 09:21 Total Bilirubin 0.60 mg/dL (0.1-1.2) 11/22/18 05:51 Direct Bilirubin < 0.2 mg/dL (0-0.2) 11/21/18 09:16 AST 12 units/L (5-40) 11/22/18 05:51 ALT 11 units/L (7-56) 11/22/18 05:51 Alkaline Phosphatase 102 units/L (35-129) 11/22/18 05:51 Total Creatine Kinase 214 units/L (55-170) H 11/21/18 09:16 CK-MB (CK-2) 3.5 ng/mL (0.0-4.0) 11/21/18 09:16 CK-MB (CK-2) Rel Index 1.6 (0-4) 11/21/18 09:16 Troponin T < 0.010 ng/mL (0.00-0.029) 11/21/18 09:16 NT-Pro-B Natriuret Pep 891.2 pg/mL (0-450) H 11/21/18 09:16 Total Protein 6.4 g/dL (6.3-8.2) 11/22/18 05:51 Albumin 2.8 g/dL (3.9-5) L 11/22/18 05:51 Albumin/Globulin Ratio 0.8 % 11/22/18 05:51 TSH 0.799 mlU/mL (0.270-4.200) 11/21/18 09:23 Urine Color Yellow (Yellow) 11/21/18 11:07 Urine Turbidity Clear (Clear) 11/21/18 11:07 Urine pH 6.0 (5.0-7.0) 11/21/18 11:07 Ur Specific [place] 1.030 (1.003-1.030) 11/21/18 11:07 Urine Protein 100 mg/dl mg/dL (Negative) 11/21/18 11:07 Urine Glucose (UA) >=500 mg/dL (Negative) 11/21/18 11:07 Urine Ketones 80 mg/dL (Negative) 11/21/18 11:07 Urine Blood Sm (Negative) 11/21/18 11:07 Urine Nitrite Neg (Negative) 11/21/18 11:07 Urine Bilirubin Neg (Negative) 11/21/18 11:07 Urine Urobilinogen < 2.0 mg/dL (<2.0) 11/21/18 11:07 Ur Leukocyte Esterase Neg (Negative) 11/21/18 11:07 Urine WBC (Auto) 1.0 /HPF (0.0-6.0) 11/21/18 11:07 Urine RBC (Auto) 1.0 /HPF (0.0-6.0) 11/21/18 11:07 Urine Mucus Few /HPF 11/21/18 11:07 Vancomycin Trough 9.6 ug/mL (5.0-20.0) 11/23/18 09:16 Urine Opiates Screen Presumptive negative 11/21/18 11:07 Urine Methadone Screen Presumptive negative 11/21/18 11:07 Ur Barbiturates Screen Presumptive negative 11/21/18 11:07 Ur Phencyclidine Scrn Presumptive negative 11/21/18 11:07 Ur Amphetamines Screen Presumptive negative 11/21/18 11:07 U Benzodiazepines Scrn Presumptive negative 11/21/18 11:07 Urine Cocaine Screen Presumptive negative 11/21/18 11:07 U Marijuana (THC) Screen Presumptive positive 11/21/18 11:07 Drugs of Abuse Note Disclamer 11/21/18 11:07 Nutrition/Malnutrition Assess - Dietary Evaluation Nutrition/Malnutrition Findings: Nutrition Notes Start: 11/22/18 13:39 Freq: Status: Active Protocol: Document 11/22/18 13:40 RM (Rec: 11/22/18 13:41 RM [id number]) Nutrition 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 [place] 20 points. Nutrition Intervention Revisit per MD consult or patient Sign Off request:
--- NOTE | 2018-11-24 12:23 | Discharge Summary ---
Providers - Providers Date of Admission: 11/21/18 11:57 Date of discharge: 11/24/18 Attending physician: MINH DWYER 11/21/18 17:39 Consult to Physician [CONS] Routine Comment: Consulting Provider: JOSE CARLOS HOPPER Physician Instructions: Reason For Exam: LLE Cellulitis 11/21/18 20:50 Consult to Wound/ET Nurse [CONS] Routine Reason For Exam: wound eval 11/23/18 11:11 Consult to Physician [CONS] Routine Comment: Consulting Provider: PARADISE MORA Physician Instructions: Reason For Exam: Left leg infected wound,cellulitis,staph infection Primary care physician: ALLY HARRISON Hospitalization Condition: Fair Disposition: DC- TO HOME OR SELFCARE - Discharge Diagnoses (1) Hypertensive emergency Status: Acute (2) Left leg cellulitis Status: Acute (3) Marijuana dependence Status: Acute (4) Sepsis Status: Acute Qualifiers: Sepsis type: sepsis due to unspecified organism Qualified Code(s): A41.9 - Sepsis, unspecified organism (5) Type 2 diabetes mellitus Status: Chronic Qualifiers: Diabetes mellitus nursing home insulin use: without nursing home use (6) MRSA (methicillin resistant Staphylococcus aureus) infection Status: Acute Core Measure Documentation - Palliative Care Palliative Care/ Comfort Measures: Not Applicable - Core Measures Any of the following diagnoses?: none Exam - Constitutional Vitals: Temp Pulse Resp BP Pulse Ox 98.8 F 102 H 18 155/92 93 11/24/18 06:05 11/24/18 06:05 11/24/18 06:05 11/24/18 06:05 11/24/18 06:05 Plan Activity: advance as tolerated Diet: low fat, low cholesterol, low salt, diabetic Additional Instructions: 1.Follow up with PCP in 1 week. 2.Follow up with Dr. Hopper, surgeon in 1 week Follow up with: ALLY HARRISON MD [Primary Care Provider] - 7 Days Prescriptions: Doxycycline [Vibramycin CAP] 100 mg PO Q12HR 7 Days #14 capsule Insulin Glargine,Hum.rec.anlog [Lantus] 18 units SQ QHS #1 vial Potassium Chloride [Klor-Con M20] 20 meq PO DAILY 7 Days tab.er.prt traMADol [Ultram 50 MG tab] 50 mg PO Q6HR PRN #12 tablet PRN Reason: Pain
[2018-11-25 11:25] VITALS: BP 161/99
== END 2018-11-24 15:30 | disposition home or self-care (01) | DRG 854 ==
LOC: ED 08:12 → 3A 11:57
PROVIDERS: ADMIT Internal Medicine; ATTEND Internal Medicine
PROC: 0J9P0ZZ Drainage of Left Lower Leg Subcutaneous Tissue and Fascia, Open Approach (ICD-10-PCS; principal; 2018-11-22)
DX: A41.9 Sepsis, unspecified organism (principal); L03.116 Cellulitis of left lower limb; L02.416 Cutaneous abscess of left lower limb; I16.1 Hypertensive emergency; E11.65 Type 2 diabetes mellitus with hyperglycemia; I10 Essential (primary) hypertension; E87.6 Hypokalemia; F12.20 Cannabis dependence, uncomplicated; Z86.73 Personal history of transient ischemic attack (TIA), and cerebral infarction without residual deficits; Z71.51 Drug abuse counseling and surveillance of drug abuser
CPT/HCPCS: 36415; 71045; 80048; 80053; 80076; 80202; 80307; 81001; 82140; 82550; 82553; 82962; 83036; 83880; 84443; 84484; 85025; 85027; 85610; 85730; 87040; 87076; 87116; 87186; 90471; 90715; 93005; 93010; 96361; 96374; 96375; G0378; J0295; J0360; J0690; J1170; J1650; J1815; J2185; J2405; J3370; J7030; J7040